=== PATIENT | female | born 1930 | race Hispanic/Latino ===

== ENCOUNTER 2019-04-12 08:17 | Day surgery (SDC) | payer OTHER ==
[~2019-04-12 08:17] MED LIST: ASPI-1005 PO; ATOR40TA71 PO; BRIM5DRO4 OP; CELE-84 PO; CLOP75TA14 PO; Isosorbide Mononitrate PO; METO25TA6 PO; PANT40TA PO; TIMXE255OS OP
--- NOTE | 2019-04-12 09:00 | NUR ---
ASSESSMENT PT HERE FOR PROCEDURE. DENIES ANY PAIN, SOB. SON AT BEDSIDE.
[2019-04-12 09:26] VITALS: BP 162/77
[2019-04-12] MEDS ORDERED: SODIUM CHLORIDE 0.9% 1000ML 1,000 ML IV ONE (09:31)
[2019-04-12] MEDS ORDERED: IOHEXOL-350 50ML VIAL IV ONE (11:52)
[2019-04-12] MEDS ORDERED: IOHEXOL-350 75 ML VIAL IV ONE (11:53)
[2019-04-12 12:47] VITALS: BP 171/73
[2019-04-22] MEDS ORDERED: FERR-82 PO (10:54)
[2019-04-22] MEDS ORDERED: GABA-529 PO (10:54)
[2019-04-22] MEDS ORDERED: FLUT15.845 NS (10:54)
[2019-04-22] MEDS ORDERED: AMLO5TAB9 PO (10:54)
== END 2019-04-12 13:15 | disposition home or self-care (01) ==
LOC: RAH 08:17
PROVIDERS: ATTEND Internal Medicine Cardiovascular Disease
DX: I73.9 Peripheral vascular disease, unspecified (principal)
CPT/HCPCS: 75635; A4215; A4216; A4221; A4222; A4223 ×2; A4606; J7030; Q9967 ×2; 96360; 96361